=== PATIENT | male | born 1950 | race Caucasian/White ===

== ENCOUNTER → 2018-07-24 | Outpatient (CLI) | payer MEDICARE ==
--- NOTE | 2018-07-24 14:01 | PN ---
PROGRESS NOTE DATE OF SERVICE: 07/24/2018 A 68-year-old gentleman who has been followed in the [facility] for treatment of obstructive sleep apnea-hypopnea syndrome. Recently patient had diagnostic polysomnogram which showed moderate obstructive sleep apnea-hypopnea syndrome with apnea-hypopnea index 25.1, and oxygen desaturation to 76.4%. After the patient underwent CPAP and BiPAP titration and subsequently was recommended treatment with BiPAP. Today is his first visit after he was started on treatment with BiPAP. According to patient, he feels much better while he is using BiPAP. Sleeps better and wakes up significantly more refreshed in the morning and feels better during the day. I checked his BiPAP unit, pressure is 17/13 cm of water. usage is every night and nights more than 4 hours with average usage 5.5 hours per night. The patient is using a full face Dream Wear mask. Significant leak reading from the machine 58 L/minute. Apnea-hypopnea index is acceptable 7.7. [place] Sleepiness Scale today is 3. MEDICATIONS: Albuterol, aspirin, atorvastatin, insulin, Bupropion, ferrous sulfate, fluoxetine, gabapentin, losartan, metformin, naproxen, pantoprazole, Percocet, ropinirole, trazodone, acetonide 0.1% topical cream, Victoza, Wellbutrin. PHYSICAL EXAM: Patient in no distress. BP 120/66, HR 63, RR 18, weight 238, temp 97, height 5, 11. Oropharynx, low position of soft palate. Mallampati 4. Abdomen, slightly diabetes. PHYSICAL EXAMINATION: GENERAL A pleasant patient without any distress. VITAL SIGNS BP@@ , HR@@ , RR@@, height @@ , weight @@ , BMI @@, temperature @@ , oxygen saturation at room air @@%. HEENT PERRLA, EOMI, evaluation of oropharynx showed tongue protrudes midline. Neck Supple, no JVD. Thyroid is not palpable. LUNGS Clear to percussion and to auscultation. Good air exchange. No wheezing or rhonchi. HEART S1, S2 regular. No murmurs, gallops, or rubs. ABDOMEN Soft and nontender. Bowel sounds are present. No organomegaly appreciated. EXTREMITIES No clubbing or cyanosis. HOME HELP AIDE Awake, alert, and oriented X3. Cranial nerves 2 to 7 intact. There is no fasciculation or atrophy. noted. No focal deficits observed. IMPRESSION: 1. Obstructive sleep apnea-hypopnea syndrome. Patient demonstrated great compliance with treatment benefitting from treatment. 2. Significant leak from the full-face mask. 3. Hypertension, now. 4. History of asthma. 5. Periodic limb movements have been documented during the sleep study. Patient is on treatment 2 with repeat 0. 6. Status post UPPP and tonsillectomy. 7. Status post broken nose in surgical treatment. 8. Diabetes mellitus. 9. History of psoriasis. 10.Back problems. 11.Status post left hip total replacement. 12.Status post right knee total replacement. 13.Status post cholecystectomy. PLAN: 1. Refit patient with a different style of full-face mask. It will be Simplex. 2. Patient will continue to use CPAP equipment every night for the whole night. 3. Losing weight. 4. Precautions related to driving. No driving if feeling sleepiness. 5. Will maintain all necessary CPAP prescription. Thank you very much for allowing me to participate in the management of your patient. Sincerely. Byron Busch MD, PhD, FAASM Diplomat of [place] [employer] [place] [employer] Chief Customer Officer of [facility] [place] [id number] / IJN: [id number] /
== END | disposition home or self-care (01) ==
LOC: SLEEP 11:35
PROVIDERS: ATTEND Internal Medicine
DX: G47.33 Obstructive sleep apnea (adult) (pediatric) (principal); I10 Essential (primary) hypertension; J45.909 Unspecified asthma, uncomplicated; G47.61 Periodic limb movement disorder; S02.2XXA Fracture of nasal bones, initial encounter for closed fracture; E11.9 Type 2 diabetes mellitus without complications; L40.9 Psoriasis, unspecified; Z96.651 Presence of right artificial knee joint; Z96.642 Presence of left artificial hip joint; Z90.49 Acquired absence of other specified parts of digestive tract; Z79.51 Long term (current) use of inhaled steroids; Z79.82 Long term (current) use of aspirin; Z79.4 Long term (current) use of insulin; Z79.899 Other long term (current) drug therapy; Z90.89 Acquired absence of other organs; Z98.890 Other specified postprocedural states; Z79.891 Long term (current) use of opiate analgesic; Z99.89 Dependence on other enabling machines and devices

== ENCOUNTER → 2020-11-03 | Outpatient (CLI) | payer MEDICARE ==
--- NOTE | 2020-11-04 08:10 | SFUN ---
SLEEP CENTER FOLLOW UP NOTE DATE OF SERVICE: 11/03/2020 70-year-old gentleman has been followed in Sleep Center for treatment of obstructive sleep apnea-hypopnea syndrome. I did not see patient for 2 years. He continues to use his BiPAP equipment. Sometimes after awakening at night, he puts mask on, but he does not start machine back. [place] Sleepiness Scale today is 11, which is slightly high. I checked his BiPAP unit. Pressure is 17/13 cm of water, usage 23/30 nights and 12/30 nights more than 4 hours with average usage 4.9 hours per night. Leak is high 50 L/minute. Apnea-hypopnea index slightly increased to 5.7. MEDICATIONS: Oxycodone twice a day, atorvastatin, ropinirole, gabapentin, losartan, B12, iron supplement. PHYSICAL EXAMINATION: GENERAL: Patient in no distress BP 154/65, HR 80, RR 15, height 5 feet 9-1/2 inches, weight 233 pounds, body mass index 33.9, temperature 98.3, oxygen saturation at room air 97%. Oropharynx low position of soft palate. NECK: Supple, no JVD. Thyroid is not palpable. LUNGS: Clear to percussion and to auscultation. Good air exchange. No wheezing or rhonchi. HEART: S1, S2 regular. No murmurs, gallops, or rubs. ABDOMEN: Obese. Soft and nontender. Bowel sounds are present. No organomegaly appreciated. EXTREMITIES: No clubbing or cyanosis. BOX TRUCK DRIVER: Awake, alert, and oriented X3. Cranial nerves 2 to 7 intact. There is no fasciculation or atrophy. noted. No focal deficits observed. IMPRESSION: 1. Obstructive sleep apnea-hypopnea syndrome the patient demonstrated borderline compliance with treatment benefitting from treatment. Apnea-hypopnea index slightly increased it is 5.7, with significant leak from full-face mask. 2. Hypertension. 3. History of asthma. 4. Periodic limb movements on treatment with ropinirole. 5. Status post uvulopalatopharyngoplasty and tonsillectomy. 6. Status post broken nose and surgical treatment. 7. Diabetes mellitus. 8. History of . 9. Back problems. 10.Status post left hip total replacement. 11.Status post right knee total replacement. 12.Status post cholecystectomy. PLAN: 1. I changed regimen in the BiPAP machine to automatic with maximal inspiratory pressure 19 and minimal expiratory pressure 8 cm of water. 2. Sleep hygiene with regular time in bed for at least 7-1/2 to 8 hours. 3. Precautions related to driving. No driving if feeling sleepiness. 4. I will maintain all necessary prescription for PAP supplies including mask, tube, filters. 5. Watching weight. 6. Follow-up visit in 6 months or earlier if patient has any problems. 7. Patient needs to replace his mask immediately. Presently, this is Dream Wear fullface mask with medium size head gear and large size over the mask. Thank you very much for allowing me to participate in management of your patient. Sincerely, Byron Busch MD, PhD, FAASM Diplomat of [place] [employer] Sleep Medicine Board of [place] [employer] Concrete Boom Pump Operator of [facility] [place] [facility] / ANUM: [id number] /
== END ==
LOC: SLEEP 12:51
PROVIDERS: ATTEND Internal Medicine
DX: G47.33 Obstructive sleep apnea (adult) (pediatric) (principal); I10 Essential (primary) hypertension; J45.909 Unspecified asthma, uncomplicated; M53.80 Other specified dorsopathies, site unspecified; E11.9 Type 2 diabetes mellitus without complications; G47.61 Periodic limb movement disorder; Z98.890 Other specified postprocedural states; Z90.09 Acquired absence of other part of head and neck; Z96.642 Presence of left artificial hip joint; Z96.651 Presence of right artificial knee joint; Z90.49 Acquired absence of other specified parts of digestive tract

== ENCOUNTER → 2021-06-21 | Outpatient (CLI) | payer MEDICARE ==
--- NOTE | 2021-06-21 17:27 | SFUN ---
SLEEP CENTER FOLLOW UP NOTE DATE OF SERVICE: 06/21/2021 This 71-year-old gentleman has been followed in Sleep Center for treatment of obstructive sleep apnea-hypopnea syndrome. The patient continues to use his CPAP equipment most of the nights, getting his CPAP supplies on time. [place] Sleepiness Scale today is 4, which is normal. I checked his BiPAP unit. Maximal inspiratory pressure 19, minimal expiratory pressure 8, pressure support 4. Average pressure is 17/13. Usage is 24/30 nights and 21/30 nights for more than 4 hours, average 7 hours per night, which is acceptable compliance. Leak is high at 38 L/minute. Apnea-hypopnea index is slightly increased at 7.3. The patient had a heart attack on February 18, 2021. CURRENT MEDICATIONS: 1. Atorvastatin. 2. Ropinirole. 3. Gabapentin. 4. Losartan. 5. Iron supplement. 6. Oxycodone. PHYSICAL EXAMINATION: GENERAL: Pleasant patient in no distress. VITAL SIGNS: BP 155/61, HR 61, RR 16, weight 228 pounds, temperature 97.0, height 5 feet 9-1/2 inches, oxygen saturation at room air 97%. HEENT: PERRLA, EOMI, evaluation of oropharynx showed tongue protrudes midline. Low position of soft palate. NECK: Supple, no JVD. Thyroid is not palpable. LUNGS: Clear to percussion and to auscultation. Good air exchange. No wheezing or rhonchi. HEART: S1, S2 regular. No murmurs, gallops, or rubs. ABDOMEN: Soft and nontender. Bowel sounds are present. No organomegaly appreciated. EXTREMITIES: No clubbing or cyanosis. LIVING ADVISOR: Awake, alert, and oriented X3. Cranial nerves 2 to 7 intact. There is no fasciculation or atrophy. noted. No focal deficits observed. IMPRESSION: 1. Obstructive sleep apnea-hypopnea syndrome. Patient demonstrated good compliance with treatment, benefitting from treatment. Slight increase of apnea-hypopnea index. Leak from full-face mask slightly increased. 2. Hypertension. 3. History of heart attack in January of 2021. 4. History of asthma. 5. Periodic limb movements, on treatment with ropinirole. 6. Status post broken nose and surgical treatment. 7. Status post uvulopalatopharyngoplasty and tonsillectomy. 8. Diabetes mellitus. 9. Back problems. 10.Status post total left hip replacement. 11.Status post total right knee replacement. 12.Status post cholecystectomy. PLAN: 1. Patient will continue to use PAP equipment every night for the whole night. 2. Sleep hygiene with regular time in bed for at least 7-1/2 to 8 hours. 3. Precautions related to driving. No driving if feeling sleepiness. 4. I will maintain all necessary prescription for PAP supplies including mask, tube, filters. 5. Watching weight. 6. Follow-up visit in 6 months or earlier if patient has any problems. Thank you very much for allowing me to participate in the management of your patient. Sincerely, Byron Busch MD, PhD, FAASM Diplomat of [place] [employer] Sleep Medicine Board of [place] [employer] Router Operator Radial of [facility] [place] MAGGIE / ANUM: [id number] /
== END ==
LOC: SLEEP 15:14
PROVIDERS: ATTEND Internal Medicine
DX: G47.33 Obstructive sleep apnea (adult) (pediatric) (principal); I10 Essential (primary) hypertension; J45.909 Unspecified asthma, uncomplicated; G47.61 Periodic limb movement disorder; Z98.890 Other specified postprocedural states; Z90.09 Acquired absence of other part of head and neck; E11.9 Type 2 diabetes mellitus without complications; Z99.89 Dependence on other enabling machines and devices; M53.80 Other specified dorsopathies, site unspecified; Z96.642 Presence of left artificial hip joint; Z96.651 Presence of right artificial knee joint; Z90.49 Acquired absence of other specified parts of digestive tract